=== PATIENT | male | born 1985 | race Caucasian/White ===

== ENCOUNTER 2020-06-03 17:24 | Inpatient (IN) | payer OTHER ==
[~2020-06-03] VITALS: Ht 172.7 cm; Wt 68.0 kg
[2020-06-03 17:54] LABS: ABSOLUTE NEUTROPHILS 7.6 thou/uL (1.4-8.2); BASOPHILS 0.5 % (0.0-2.0); EOSINOPHILS 0.1 % (0.0-3.0); HEMATOCRIT 51.9 % (42.0-52.0); HEMOGLOBIN 19.1 gm/dL (14.0-18.0); LYMPHOCYTES 15.7 % (24.0-44.0); MCH 34.6 pg (26.0-34.0); MCHC 36.8 g/dL (28.0-37.0); MCV 94.1 fL (80.0-100.0); MONOCYTES 10.7 % (1.0-8.0); PLATELET COUNT 323 thou/uL (150-400); RBC 5.52 mil/uL (4.50-6.00); RDW 14.5 % (10.5-14.5); WBC 10.4 thou/uL (4.0-11.0)
[2020-06-03 18:09] LABS: ALBUMIN 4.5 g/dL (3.4-5.0); ANION GAP 15 mmol/L (7-16); BUN 19 mg/dL (7-18); CALCIUM 8.6 mg/dL (8.5-10.1); CHLORIDE 71 mmol/L (98-107); CO2 43 mmol/L (21-32); CREATININE 2.5 mg/dL (0.7-1.3); GLUCOSE 115 mg/dL (74-106); SALICYLATE < 2.8 mg/dL (2.8-20.0); SGOT 21 U/L (15-37); SGPT 22 U/L (30-65); SODIUM 129 mmol/L (136-145); TOTAL PROTEIN 8.6 g/dL (6.4-8.2)
--- NOTE | 2020-06-03 18:10 | NUR ---
UNABLE TO OBTAIN A BLOOD PRESSURE AT THIS TIME DUE TO PATIENTS ARMS AND LEGS CRAMPING WHEN CUFF INFLATES. CARLA NOTIFIED
[2020-06-03 18:11] LABS: POTASSIUM 2.6 mmol/L (3.5-5.1)
[2020-06-03 19:59] VITALS: BP 133/87
[2020-06-03 20:07] VITALS: BP 120/70
[2020-06-03 20:40] VITALS: BP 130/81
[2020-06-03 21:13] LABS: FOLIC ACID 7.8 ng/mL (8.6-58.9); PHOSPHORUS 6.2 mg/dL (2.5-4.9)
[2020-06-03 23:56] VITALS: BP 146/53
--- NOTE | 2020-06-04 00:48 | NUR ---
PT ADMITTED FROM ED WITH ALCOHOL WITHDRAWAL,HYPOKALEMIA AND HYPOMAGNESIUM.PT ARRIVED TO UNIT VIA CART ACCOMPANIED BY THE STAFF.PT A/OX4 IN NO ACUTE DISTRESS.ORIENTED TO RM AND UNIT ACTIVITIES VSS.ON MONITOR SR.CIWR SCORE COMPLETED,SCORED 1 UPON ARRIVAL.DENIES NAUSEA AND VOMITING.ASSESSMENT COMPLETED DOCUMENTED.MAGNESIUM AND POTASSIUM REPLACED ORDERED.SEIZURE PRECAUTIONS INTIATED.IVF INFUSING.POC IS TO CONT TO MONITOR FOR ALCOHOL WITHRAWAL SYMPTOMS AND TREATMENT.WILL CONTINUE TO MONITOR PER POC.
[2020-06-04 03:37] VITALS: BP 146/74
[2020-06-04 06:22] LABS: CALCIUM 7.7 mg/dL (8.5-10.1); CREATININE 2.4 mg/dL (0.7-1.3)
[2020-06-04 06:55] LABS: POTASSIUM 2.1 mmol/L (3.5-5.1)
[2020-06-04 07:33] LABS: URINE BLOOD NEGATIVE (Negative); URINE CLARITY CLEAR; URINE COLOR YELLOW; URINE GLUCOSE-RANDOM* TRACE (Negative); URINE KETONES 1+ (Negative); URINE LEUKOCYTES-REFLEX NEGATIVE (Negative); URINE NITRITE-REFLEX NEGATIVE (Negative); URINE PROTEIN (DIPSTICK) 1+ (Negative); URINE SPECIFIC GRAVITY 1.015 (1.005-1.035)
[2020-06-04 07:35] VITALS: BP 132/73
[2020-06-04 07:35] LABS: ICTOTEST (BILI CONFIRMATORY) Negative (Negative); URINE BILIRUBIN NEGATIVE (Negative)
[2020-06-04 07:41] LABS: CRYSTALS None Seen /LPF (None Seen); SQUAMOUS None Seen /LPF (0-3); URINE RBC None Seen /HPF (0-2)
[2020-06-04 07:42] LABS: BACTERIA-REFLEX 1-9 Few /HPF (None Seen); URINE WBC-REFLEX 0-5 Rare /HPF (0-5)
[2020-06-04 07:43] LABS: HYALINE CASTS 0-3 Few /LPF (None Seen)
[2020-06-04 07:48] LABS: AMP/METHAMP Negative (Negative); BARBITURATES Negative (Negative); BENZODIAZEPINES Negative (Negative); COCAINE Negative (Negative); METHADONE Negative (Negative); OPIATES Negative (Negative); PCP Negative (Negative)
--- NOTE | 2020-06-04 08:32 | NUR ---
ASSUMED CARE FROM JANICE STEVENSON, REPORT OBTAINED. PT. HERE FOR ETOH WITHDRAWL HAS NOT HAD ALCOHOL IN 3 DAYS PER HIS REPORT-NOW 4. C/O BACK PAIN-FROM SPORTS PRIOR SO CONSIDERS IT CHRONIC. COUGH NOTED, NOT PRODUCTIVE. TREMORS OBSERVED-SLIGHT NOT SEVERE IN NATURE. TYLENO GIVEN FOR BACK PAIN AT THIS TIME. IV BECAME DISLODGED WITH HIM SLEEPING WILL GET A NEW ONE SHORTLY.
--- NOTE | 2020-06-04 09:05 | EKG ---
[facility] [place] [address] [address] ELECTROCARDIOGRAM REPORT Name: KELSEY MUNOZ Room #: 214-P ADM IN M.R.#: [id number] Admission: 06/03/20 Attend Phys: Kirill Izaguirre MD Discharge: Date of : 83 Report #: [id number] THIS REPORT FOR: cc: EMILIO Griffin family physician/PCP EMILIO - Gaby family physician/PCP Otto Willis MD [facility] THIS REPORT FOR: //name// [facility] Test Date: 2020-06-03 Test Time: 18:17:51 Pat Name: KELSEY MUNOZ Department: Room: 214 Gender: M Family Service Assistant: [facility] : 1985 Requested By: Arely Jackson Order Number: [id number] MD: Otto Willis Measurements Intervals [place] Rate: 100 P: 82 KS: 139 QRS: 86 QRSD: 117 T: 79 QT: 457 QTc: 590 Interpretive Statements Sinus tachycardia Prolonged QT interval Baseline wander in lead(s) V3,V4,V5,V6 No previous ECG available for comparison Electronically Signed On 06-04-2020 9:05:11 CDT by Otto Willis [email or web address] <ELECTRONICALLY SIGNED> By: Otto Willis MD, [facility] 06/04/20 0905 1817 16 Otto Willis MD, [facility] /EPI
[2020-06-04 12:08] VITALS: BP 128/76; BP 132/73
[2020-06-04 16:00] VITALS: BP 135/86
[2020-06-04 19:34] VITALS: BP 134/79
--- NOTE | 2020-06-04 21:58 | NUR ---
PT LEFT AMElia SINGNED OUT AND NOTIFIED LILIANE. PT DOES NOT WANT TO STAY IS GOING HOME TO SLEEP IN OWN BED. INFORMED HI9M WE ARENT RESPONSIBLE FOR HEALTH AND THE BILL THE INSURANCE WONT COVER HE SAID OK AND SIGNED PAPER AND LEFT. SOLAR TECHNICIAN NOTIFIED OF INCIDENT.
== END 2020-06-04 22:30 | disposition left against medical advice (07) | DRG 682 ==
LOC: ER 17:24 → EROBS 19:48 → 2N 20:27
PROVIDERS: Nurse Practitioner Family; Physician Assistant; ADMIT Hospitalist; ATTEND Hospitalist
DX: N17.9 Acute kidney failure, unspecified (principal); G93.41 Metabolic encephalopathy; F10.239 Alcohol dependence with withdrawal, unspecified; E87.1 Hypo-osmolality and hyponatremia; E87.6 Hypokalemia; F12.10 Cannabis abuse, uncomplicated; F10.229 Alcohol dependence with intoxication, unspecified; E83.42 Hypomagnesemia; Z71.41 Alcohol abuse counseling and surveillance of alcoholic; Z71.6 Tobacco abuse counseling; Z53.29 Procedure and treatment not carried out because of patient's decision for other reasons
CPT/HCPCS: 10081

== ENCOUNTER 2020-08-12 02:53 | Emergency (ER) | payer OTHER ==
[~2020-08-12] VITALS: Ht 172.7 cm; Wt 68.0 kg
[2020-08-12 02:54] VITALS: BP 173/118
== END 2020-08-12 03:23 | disposition home or self-care (01) ==
LOC: ER 02:53
DX: S00.81XA Abrasion of other part of head, initial encounter (principal); F10.121 Alcohol abuse with intoxication delirium; F17.210 Nicotine dependence, cigarettes, uncomplicated; Y90.9 Presence of alcohol in blood, level not specified; X58.XXXA Exposure to other specified factors, initial encounter; Y92.89 Other specified places as the place of occurrence of the external cause; Y93.89 Activity, other specified; Y99.8 Other external cause status